=== PATIENT | female | born 1990 | race African-American/Black ===

== ENCOUNTER 2018-07-21 13:05 | Inpatient (IN) | payer OTHER ==
[2018-07-21] MEDS ORDERED: ACETAMINOPHEN 500 MG TABLET (FP) ONE (13:45)
[2018-07-21 13:46] LABS: BASO % 0.3 % (0-2.0); EOS % 0.4 % (0-4.5); HEMATOCRIT 32.9 % (32.4-45.2); HEMOGLOBIN 11.5 GM/dL (10.7-15.3); LYMPH % 19.4 % (8-40); MCH 32.9 pg (25.7-33.7); MCHC 34.9 g/dl (32.0-36.0); MEAN CELL VOLUME 94.1 fl (80-96); MEAN PLT VOLUME 10.4 fl (7.5-11.1); MONO % 10.8 % (3.8-10.2); NEUT % 69.1 % (42.8-82.8); PLATELET COUNT 206 K/MM3 (134-434); RDW 13.7 % (11.6-15.6); RETICULOCYTES 1.45 % (0.5-1.5); WHITE BLOOD COUNT 9.5 K/mm3 (4.0-10.0)
[2018-07-21 13:57] LABS: INR 0.96 (0.83-1.09); PROTHROMBIN TIME (PATIENT) 11.3 SEC (9.7-13.0)
[2018-07-21 14:01] LABS: ACTIVATED PTT 27.2 SECONDS (25.2-36.5)
[2018-07-21 14:13] VITALS: BMI 30.1
[2018-07-21 14:18] LABS: ANION GAP 10 MMOL/L (8-16); BLOOD UREA NITROGEN 5 mg/dL (7-18); CALCIUM 9.3 mg/dL (8.5-10.1); CHLORIDE 104 mmol/L (98-107); CO2 23 mmol/L (21-32); CREATININE 0.4 mg/dL (0.55-1.3); GAMMA GLUTAMYL TRANSPEPTIDASE 48 U/L (5-85); GLUCOSE,RANDOM 63 mg/dL (74-106); POTASSIUM 3.7 mmol/L (3.5-5.1); SGOT/AST 12 U/L (15-37); SGPT/ALT 15 U/L (13-61); SODIUM 136 mmol/L (136-145); URIC ACID 3.2 mg/dL (2.6-7.2)
[2018-07-21] MEDS ORDERED: DINOPROSTONE 10 MG VAGINAL SUPPOSITORY VG ONE ×2 (14:30→14:37)
[2018-07-21] MEDS ORDERED: ACETAMINOPHEN 500 MG TABLET (FP) PO ONE (14:30)
[2018-07-21] MEDS ORDERED: PROMETHAZINE HCL 25 MG/1 ML VIAL IVPUSH ONE (14:37)
[2018-07-21] MEDS ORDERED: BUTORPHANOL TARTRATE 1 MG/ML VIAL IVPUSH ONE (14:37)
--- NOTE | 2018-07-21 15:00 | HP ---
Past Medical History - Primary Care Physician PCP:: Kd Stephens - Admission Chief Complaint: 39.4 weeks, gestational HTN , for cervidil induction History of Present Illness: 27 yo f 39.4 weeks c/o mild headache, bp 130/89 with 1+ protein cx 1 cm 50 vx -3 mi, fhr cat 1, irregular contraction, cervidil risks discussed , ulternatives explained History Source: Patient Limitations to Obtaining History: No Limitations - Past Medical History ...: 3 ...Para: 2 ...Term: 2 ...: 0 ...Spon : 0 ...Induced : 0 ...Multiple Gestation: 0 ...LMP: 10/27/17 ... Weeks Gestation by Dates: 37.5 ...EDC by Dates: 08/06/18 ...EDC by Sono: 07/25/18 - Past Surgical History Hx Myomectomy: No Hx Transabdominal Cerclage: No - Smoking History Smoking history: Never smoked Have you smoked in the past 12 months: No - Alcohol/Substance Use Hx Alcohol Use: No History of Substance Use: reports: None - Social History History of Recent Travel: No Home Medications - Allergies Allergies/Adverse Reactions: Allergies Allergy/AdvReac Type Severity Reaction Status Date / Time chloroquine Allergy Intermediate Itching Verified 07/20/18 01:08 - Home Medications Home Medications: Ambulatory Orders Vitamins (Sjr) - 1 tab PO DAILY #0 tablet 11/06/12 Ferrous Sulfate [Iron] 325 mg PO TID 07/20/18 Review of Systems - Review of Systems Constitutional: reports: No Symptoms Eyes: reports: No Symptoms HENT: reports: No Symptoms Neck: reports: No Symptoms Cardiovascular: reports: No Symptoms Respiratory: reports: No Symptoms Gastrointestinal: reports: No Symptoms Genitourinary: reports: No Symptoms Breasts: reports: No Symptoms Reported Musculoskeletal: reports: No Symptoms Integumentary: reports: No Symptoms Neurological: reports: No Symptoms Endocrine: reports: No Symptoms Hematology/Lymphatic: reports: No Symptoms Psychiatric: reports: No Symptoms Physical Exam - Maternity Vital Signs: Vital Signs Temperature 98.7 F 07/21/18 13:30 Pulse Rate 86 07/21/18 13:30 Respiratory Rate 20 07/21/18 13:30 Blood Pressure 124/79 07/21/18 13:30 O2 Sat by Pulse Oximetry (%) Constitutional: Yes: Well Nourished, No Distress, Calm Eyes: Yes: WNL, Conjunctiva Clear, EOM Intact HENT: Yes: WNL, Atraumatic, Normocephalic Neck: Yes: WNL, Supple, Trachea Midline Cardiovascular: Yes: WNL, Regular Rate and Rhythm Breast(s): Yes: WNL - Abdominal Exam/OB Fundal Height: 40 Number of Fetuses: Single Presentation: Vertex Contractions: Yes Regularity: Irregular Intensity: Unaware Monitor Mode: External Category: I Accelerations: Uniform Decelerations: None - Vaginal Exam/OB Vaginal Bleediing: No Speculum Exam: No Dilatation (cm): 1 cm Effacement (%): 50 Amniotic Membrane Status: Intact Presentation: Vertex/Position Station: -3 - Physical Exam Musculoskeletal: Yes: WNL Edema: Yes Edema: LLE: Trace, RLE: Trace Deep Tendon Reflex Grade: Normal +2 ...Motor Strength: WNL Psychiatric: Yes: WNL - Labs Lab Results: CBC, BMP 07/21/18 13:30 07/21/18 13:30 Hemorrhage Risk Assessment - Risk Factors High Risk Factors: Yes: None Risk Score: 0 Risk Level: Low Risk Problem List - Problems (1) with 39 completed weeks gestation Code(s): Z3A.39 - 39 WEEKS GESTATION OF (2) Gestational hypertension Code(s): O13.9 - GESTATIONAL HTN W/O SIGNIFICANT PROTEINURIA, UNSP TRIMESTER Qualifiers: Trimester: third trimester Qualified Code(s): O13.3 - Gestational [ -induced] hypertension without significant proteinuria, third trimester (3) Elective induction of labor planned Code(s): UFQ5339 - Assessment/Plan plan admit [facility] cervidil induction hellp profile monitor BP
[2018-07-21 15:22] LABS: URINE APPEARANCE CLEAR; URINE BILIRUBIN NEGATIVE (<2.0 mg/dL); URINE COLOR YELLOW; URINE GLUCOSE (UA) NEGATIVE (NEGATIVE); URINE KETONE NEGATIVE (NEGATIVE); URINE LEUK ESTERASE NEGATIVE (NEGATIVE); URINE NITRITE NEGATIVE (NEGATIVE); URINE PROTEIN NEGATIVE (NEGATIVE); URINE UROBILINOGEN NEGATIVE mg/dL (0.2-1.0)
[2018-07-21] MEDS ORDERED: DEXTROSE 5%-LACTATED RINGERS 1,000 ML IV SCH (18:15)
[2018-07-21] MEDS ORDERED: PROMETHAZINE HCL 25 MG/1 ML VIAL ONE (23:10)
[2018-07-21] MEDS ORDERED: BUTORPHANOL TARTRATE 1 MG/ML VIAL ONE ×2 (23:10)
[2018-07-22] MEDS ORDERED: OXYTOCIN 30 UNITS in 0.9% NS 30 UNIT/500 ML INFUS.BAG IVPB SCH (02:00)
[2018-07-22] MEDS ORDERED: OXYTOCIN 30 UNITS in 0.9% NS 30 UNIT/500 ML INFUS.BAG IVPB ONE (03:19)
[2018-07-22] MEDS ORDERED: BUTORPHANOL TARTRATE 1 MG/ML VIAL IVPUSH ONE (04:08)
[2018-07-22] MEDS ORDERED: OXYTOCIN 20 UNITS in 0.9% NS 20 UNIT/1,000 ML INFUS.BAG IV ONE ×2 (04:09→10:00)
[2018-07-22] MEDS ORDERED: LIDOCAINE HCL 1% PRESERVATIVE FREE - 30ML VIAL ONE (04:09)
[2018-07-22] MEDS ORDERED: PROMETHAZINE HCL 25 MG/1 ML VIAL IVPUSH ONE (04:09)
[2018-07-22] MEDS ORDERED: WITCH HAZEL 50% (TUCKS) 40 PAD/JAR PAD TP PRN (04:11)
[2018-07-22] MEDS ORDERED: METHYLERGONOVINE MALEATE 0.2 MG/1 ML AMP IM PRN (04:11)
[2018-07-22] MEDS ORDERED: BENZOCAINE 28 GM HEMORRHOIDAL OINTMENT TP PRN (04:11)
[2018-07-22] MEDS ORDERED: BENZOCAINE 20% 57 GM BOTTLE TP PRN (04:11)
[2018-07-22] MEDS ORDERED: BISACODYL 10 MG SUPP.RECT RC PRN (04:11)
--- NOTE | 2018-07-22 04:11 | PN ---
Progress Note (short form) - Note Progress Note: cx 8 cm 80 vx , 0 , mi, arom, clear, fhr cat 1, has pain, not tolorating ppain well, moving all over, not able to monitor, scalp electrode applied, declined epidural, wants more pain meds Problem List - Problems (1) with 39 completed weeks gestation Code(s): Z3A.39 - 39 WEEKS GESTATION OF (2) Gestational hypertension Code(s): O13.9 - GESTATIONAL HTN W/O SIGNIFICANT PROTEINURIA, UNSP TRIMESTER Qualifiers: Trimester: third trimester Qualified Code(s): O13.3 - Gestational [ -induced] hypertension without significant proteinuria, third trimester (3) Elective induction of labor planned Code(s): [id number] -
[2018-07-22] MEDS: OXYTOCIN 20 UNITS in 0.9% NS 20 UNIT/1,000 ML INFUS.BAG IV SCH ×2 (04:50→10:00)
[2018-07-22] MEDS ORDERED: IBUPROFEN 600 MG TABLET (FP) PO ONE ×2 (05:32→09:29)
[2018-07-22] MEDS ORDERED: ACETAMINOPHEN 325 MG TABLET (FP) ONE ×2 (05:32→09:29)
[2018-07-22] MEDS: ACETAMINOPHEN 325 MG TABLET (FP) PO PRN ×4 (05:35→21:55)
[2018-07-22] MEDS: IBUPROFEN 600 MG TABLET (FP) PO PRN ×4 (05:35→21:55)
[2018-07-22 06:21] LABS: VENOUS PC02 44.2 mmHg (38-52); VENOUS PH 7.34 (7.32-7.42); VENOUS PO2 36.9 mmHg (28-48)
[2018-07-22] MEDS: PRENATAL VITAMINS W/ FOLIC ACID TABLET (FP) PO SCH (09:19)
[2018-07-22] MEDS: FERROUS SO4 325 MG TABLET (FP) PO SCH ×2 (09:19→22:00)
[2018-07-23] MEDS: IBUPROFEN 600 MG TABLET (FP) PO PRN ×3 (08:45→18:48)
[2018-07-23] MEDS: ACETAMINOPHEN 325 MG TABLET (FP) PO PRN ×3 (08:46→18:49)
--- NOTE | 2018-07-23 08:59 | PN ---
Post Progress Note - Subjective Subjective: no c/o headache c/o cramps Post Day: 1 Type of Delivery: Vital Signs: Vital Signs Temperature 97.9 F 07/23/18 06:00 Pulse Rate 71 07/23/18 06:00 Respiratory Rate 18 07/23/18 06:00 Blood Pressure 126/74 07/23/18 06:00 O2 Sat by Pulse Oximetry (%) 100 07/22/18 06:35 Selected Entries 07/22/18 07/22/18 07/23/18 13:30 22:00 02:00 Blood Pressure 123/65 110/68 125/67 Breast Exam: Yes: Soft, Other (BF). No: Engorged Uterus: Yes: Fundus Firm, Fundus below umbilicus, Non-tender Lochia: Yes: Rubra Lochia, amount: Moderate Extremities: Yes: Calves non-tender Perineum: Yes: Intact Activity: Ambulating - Labs Labs: CBC WBC 9.5 K/mm3 (4.0-10.0) 07/21/18 13:30 RBC 3.50 M/mm3 (3.60-5.2) L 07/21/18 13:30 Hgb 11.5 GM/dL (10.7-15.3) 07/21/18 13:30 Hct 32.9 % (32.4-45.2) 07/21/18 13:30 MCV 94.1 fl (80-96) 07/21/18 13:30 MCH 32.9 pg (25.7-33.7) 07/21/18 13:30 MCHC 34.9 g/dl (32.0-36.0) 07/21/18 13:30 RDW 13.7 % (11.6-15.6) 07/21/18 13:30 Plt Count 206 K/MM3 (134-434) 07/21/18 13:30 MPV 10.4 fl (7.5-11.1) 07/21/18 13:30 Absolute Neuts (auto) 6.6 K/mm3 (1.5-8.0) 07/21/18 13:30 Neutrophils % 69.1 % (42.8-82.8) 07/21/18 13:30 Lymphocytes % 19.4 % (8-40) 07/21/18 13:30 Monocytes % 10.8 % (3.8-10.2) H 07/21/18 13:30 Eosinophils % 0.4 % (0-4.5) 07/21/18 13:30 Basophils % 0.3 % (0-2.0) 07/21/18 13:30 Nucleated RBC % 0 % (0-0) 07/21/18 13:30 Retic Count 1.45 % (0.5-1.5) 07/21/18 13:30 Haptoglobin 139 mg/dL (34-200) 07/21/18 13:30 Problem List - Problems (1) Vaginal delivery Code(s): O80 - ENCOUNTER FOR FULL-TERM UNCOMPLICATED DELIVERY (2) Encounter for care after hospital delivery Code(s): Z39.2 - ENCOUNTER FOR ROUTINE FOLLOW-UP Assessment/Plan stable Post BP normal , HELLP work up neg except elevated haptoglobin plan ct pp care. discharge tomorrow.
[2018-07-23 09:53] LABS: BASO % 0.4 % (0-2.0); HEMATOCRIT 31.5 % (32.4-45.2); LYMPH % 25.6 % (8-40); MCH 33.4 pg (25.7-33.7); MEAN CELL VOLUME 95.4 fl (80-96); MEAN PLT VOLUME 10.4 fl (7.5-11.1); MONO % 5.8 % (3.8-10.2); NEUT % 67.2 % (42.8-82.8); PLATELET COUNT 185 K/MM3 (134-434); RBC 3.31 M/mm3 (3.60-5.2); WHITE BLOOD COUNT 10.7 K/mm3 (4.0-10.0)
[2018-07-23] MEDS: PRENATAL VITAMINS W/ FOLIC ACID TABLET (FP) PO SCH (10:22)
[2018-07-23] MEDS: FERROUS SO4 325 MG TABLET (FP) PO SCH ×2 (10:22→22:33)
[2018-07-23 13:22] LABS: ANISOCYTOSIS 1+; MACROCYTOSIS 1+; PLATELET ESTIMATE NORMAL
[2018-07-23] MEDS ORDERED: SENNOSIDES/DOCUSATE COMBO (SENNA PLUS) TABLET (UD) PO PRN (22:00)
[2018-07-24] MEDS: IBUPROFEN 600 MG TABLET (FP) PO PRN (08:26)
[2018-07-24] MEDS: ACETAMINOPHEN 325 MG TABLET (FP) PO PRN (08:26)
--- NOTE | 2018-07-24 09:33 | PN ---
Post Progress Note - Subjective Subjective: no complains Post Day: 2 Type of Delivery: Vital Signs: Vital Signs Temperature 98.5 F 07/23/18 22:00 Pulse Rate 78 07/23/18 22:00 Respiratory Rate 20 07/23/18 22:00 Blood Pressure 116/72 07/23/18 22:00 O2 Sat by Pulse Oximetry (%) 100 07/22/18 06:35 Breast Exam: Yes: Soft. No: Engorged Uterus: Yes: Fundus Firm, Non-tender Lochia: Yes: Rubra Lochia, amount: Moderate Extremities: Yes: Calves non-tender Perineum: Yes: Intact Activity: Ambulating - Labs Labs: CBC WBC 10.7 K/mm3 (4.0-10.0) H 07/23/18 08:00 RBC 3.31 M/mm3 (3.60-5.2) L 07/23/18 08:00 Hgb 11.0 GM/dL (10.7-15.3) 07/23/18 08:00 Hct 31.5 % (32.4-45.2) L 07/23/18 08:00 MCV 95.4 fl (80-96) 07/23/18 08:00 MCH 33.4 pg (25.7-33.7) 07/23/18 08:00 MCHC 35.0 g/dl (32.0-36.0) 07/23/18 08:00 RDW 14.0 % (11.6-15.6) 07/23/18 08:00 Plt Count 185 K/MM3 (134-434) 07/23/18 08:00 MPV 10.4 fl (7.5-11.1) 07/23/18 08:00 Absolute Neuts (auto) 7.2 K/mm3 (1.5-8.0) 07/23/18 08:00 Neutrophils % 67.2 % (42.8-82.8) 07/23/18 08:00 Neutrophils % (Manual) 65.3 % (42.8-82.8) 07/23/18 08:00 Band Neutrophils % 0.0 % 07/23/18 08:00 Lymphocytes % 25.6 % (8-40) D 07/23/18 08:00 Lymphocytes % (Manual) 26.5 % (8-40) 07/23/18 08:00 Monocytes % 5.8 % (3.8-10.2) 07/23/18 08:00 Monocytes % (Manual) 4 % (3.8-10.2) 07/23/18 08:00 Eosinophils % 1.0 % (0-4.5) D 07/23/18 08:00 Eosinophils % (Manual) 0.0 % (0-4.5) 07/23/18 08:00 Basophils % 0.4 % (0-2.0) 07/23/18 08:00 Basophils % (Manual) 1.0 % (0-2.0) 07/23/18 08:00 Myelocytes % (Man) 0 % (0-2) 07/23/18 08:00 Promyelocytes % (Man) 0 % (0-2) 07/23/18 08:00 Blast Cells % (Manual) 0 % (0-0) 07/23/18 08:00 Nucleated RBC % 0 % (0-0) 07/23/18 08:00 Metamyelocytes 1 % (0-2) 07/23/18 08:00 Hypochromia 0 07/23/18 08:00 Platelet Estimate Normal 07/23/18 08:00 Polychromasia 0 07/23/18 08:00 Poikilocytosis 0 07/23/18 08:00 Anisocytosis 1+ 07/23/18 08:00 Microcytosis 0 07/23/18 08:00 Macrocytosis 1+ 07/23/18 08:00 Retic Count 1.45 % (0.5-1.5) 07/21/18 13:30 Haptoglobin 139 mg/dL (34-200) 07/21/18 13:30 Problem List - Problems (1) Vaginal delivery Code(s): O80 - ENCOUNTER FOR FULL-TERM UNCOMPLICATED DELIVERY (2) Encounter for care after hospital delivery Code(s): Z39.2 - ENCOUNTER FOR ROUTINE FOLLOW-UP Assessment/Plan stable. discharge today
[2018-07-24] MEDS: FERROUS SO4 325 MG TABLET (FP) PO SCH (09:37)
[2018-07-24] MEDS: PRENATAL VITAMINS W/ FOLIC ACID TABLET (FP) PO SCH (09:37)
[2018-07-24 11:07] VITALS: BP 134/78; PULSE 91; TEMP 98
--- NOTE | 2018-07-26 11:20 | DS ---
Physical Exam-BUSINESS PLANNING MANAGER Vital Signs: Vital Signs Temperature 98.0 F 07/24/18 09:00 Pulse Rate 91 H 07/24/18 09:00 Respiratory Rate 20 07/24/18 09:00 Blood Pressure 134/78 07/24/18 09:00 O2 Sat by Pulse Oximetry (%) 100 07/22/18 06:35 Constitutional: Yes: Well Nourished, No Distress, Calm Eyes: Yes: WNL, Conjunctiva Clear, EOM Intact HENT: Yes: WNL, Atraumatic, Normocephalic Neck: Yes: WNL, Supple, Trachea Midline Cardiovascular: Yes: WNL, Regular Rate and Rhythm Respiratory: Yes: WNL, Regular, CTA Bilaterally Gastrointestinal: Yes: WNL ...Rectal Exam: Yes: WNL Renal/: Yes: WNL Vaginal Exam: Yes: Normal ....Post : Yes: Uterus firm, Uterus non-tender, Slight lochia rubra Breast(s): Yes: WNL Musculoskeletal: Yes: WNL Extremities: Yes: WNL Edema: No Integumentary: Yes: WNL Neurological: Yes: WNL, Alert, Oriented ...Motor Strength: WNL Psychiatric: Yes: WNL, Alert, Oriented Labs: CBC, BMP 07/23/18 08:00 07/21/18 13:30 Delivery - Delivery Vaginal Delivery: Spontaneous (no complication) Type of Anesthesia: None Episiotomy/Laceration: None EBL (cc): 300 Delivery, Single - Stages of Labor Date 1st Stage Initiatied: 07/21/18 Time 1st Stage Initiated: 23:45 Date 2nd Stage Initiated: 07/22/18 Time 2nd Stage Initiated: 04:05 Date of Delivery: 07/22/18 Time of Delivery: 04:15 Time Placenta Delivered: 04:50 Placenta: Yes: Spontaneous (no complication) - 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 Drink at least eight (8) glasses of water daily in addition to other fluids. ___ Regular diet MEDICATIONS: Continue vitamins and iron as previously directed. Motrin and Tylenol may be taken for minor discomfort. ACTIVITY: Mild to moderate exercise may be started in two (2) weeks. Take frequent rest periods. Resume normal activity after six (6) week check up. WOUND CARE OF OPERATIVE SITE: Continue use of perineal bottle until vaginal discharge stops. Keep area clean. Shower daily. Keep abdominal wound dry. Report any drainage or redness to physician. Tub baths, tampons and douches are not permitted for [address] Breast feeding & or Bottle feeding BREAST CARE: (For those that are not breast feeding): If engorgement occurs: Wear tight fitting bra. Take Tylenol or Motrin for pain. Apply cold packs (ice in bags to each breast ) FAMILY PLANNING: There are many control alternatives to pursue and they should be discussed at your first office visit. You may resume sexual activity after your six (6) week check up. (Remember, breast feeding is not a contraceptive) NEXT PHYSICIAN APPOINTMENT: Be certain to call for a four -six (4-6) week appointment, unless otherwise directed. Call Clinic or got to Emergency Dept if you have any of the following: Heavy vaginal bleeding Painful urination Leg pain Unusual odor noted to vaginal bleeding High fever Red streaking noted on breast Referrals: Kd Stephens MD [Staff Physician] - Disposition: HOME - Home Medications Comprehensive Discharge Medication List: Ambulatory Orders Vitamins (Sjr) - 1 tab PO DAILY #0 tablet 11/06/12 Ferrous Sulfate [Iron] 325 mg PO TID 07/20/18 Acetaminophen [Tylenol .Regular Strength -] 650 mg PO Q3H PRN tablet 07/23/18 Ferrous Sulfate [Feosol] 325 mg PO BID tab 07/23/18 Ibuprofen [Motrin -] 200 mg PO Q4H PRN tablet 07/23/18 Vitamins (Sjr) - 1 tab PO DAILY tablet 07/23/18
== END 2018-07-24 12:10 | disposition home or self-care (01) | DRG 560 ==
LOC: JLDR 13:05 → J3W 07-22 13:28
PROVIDERS: ADMIT Obstetrics & Gynecology; ATTEND Obstetrics & Gynecology
PROC: 10E0XZZ Delivery of Products of Conception, External Approach (ICD-10-PCS; principal; 2018-07-22)
DX: O13.4 Gestational [pregnancy-induced] hypertension without significant proteinuria, complicating childbirth (principal); Z3A.39 39 weeks gestation of pregnancy; Z37.0 Single live birth
CPT/HCPCS: 36415; 59025; 59409; 80048; 80053; 81003; 82803; 82977; 83010; 84450; 84460; 84550; 85025; 85027; 85044; 85610; 85730; 86593; 86850; 86900; 86901